=== PATIENT | female | born 1985 ===

== ENCOUNTER 2018-03-03 21:23 | Emergency (ER) | payer BC, MEDICAID ==
[2018-03-03 21:42] VITALS: TEMP 98.5; O2SAT 100
[2018-03-03] MEDS ORDERED: Sodium Chloride 0.9% 1,000 ML IV STA (22:30)
[2018-03-03 23:06] LABS: BASO # 0.1 K/uL (0.0-0.2); BASO % 0.8 % (0.0-2.0); EOS # 0.1 K/uL (0.0-0.7); EOS % 0.9 % (0.0-4.0); HEMOGLOBIN 15.2 g/dL (12.0-16.0); LYMPH # 2.7 K/uL (1.0-4.3); LYMPH % 25.4 % (20.0-40.0); MEAN CELL VOLUME 92.6 fl (81.0-99.0); MEAN CORPUSCULAR HEMOGLOBIN 31.6 pg (27.0-31.0); MEAN CORPUSCULAR HGB CONC 34.1 g/dL (33.0-37.0); MEAN PLATELET VOLUME 9.3 fl (7.2-11.7); MONO % 9.2 % (0.0-10.0); NEUT # 6.7 K/uL (1.8-7.0); NEUT % 63.7 % (50.0-75.0); RBC 4.82 Mil/uL (3.80-5.20); RED CELL DISTRIBUTION WIDTH 13.6 % (11.5-14.5); WHITE BLOOD COUNT 10.6 K/uL (4.8-10.8)
[2018-03-03 23:10] LABS: ALB/GLOB RATIO 1.3 (1.0-2.1); ALBUMIN 4.2 g/dL (3.5-5.0); ALT/SGPT 51 U/L (9-52); AST/SGOT 35 U/L (14-36); BLOOD UREA NITROGEN 5 mg/dl (7-17); CALCIUM 9.1 mg/dL (8.4-10.2); GFR NON-AFRICAN AMERICAN > 60
--- NOTE | 2018-03-03 23:32 | ED PDOC ---
HPI: Abdomen Time Seen by Provider: 03/03/18 21:25 Chief Complaint (Nursing): Abdominal Pain Chief Complaint (Provider): Abdominal Pain History Per: Patient History/Exam Limitations: no limitations Onset/Duration Of Symptoms: Days Current Symptoms Are (Timing): Still Present Associated Symptoms: denies: Fever, Nausea, Vomiting, Urinary Symptoms Additional Complaint(s): Rissa Shah is a 32 year old female with no past medical history who is presenting to the ED with complaints of lower abdominal and pelvic pain associated with vaginal bleeding onset 2 days ago. (bleeding resolved, gone at this time) Of note, patient is currently 8 weeks and (2 miscarriages). Patient denies any fevers, vomiting, or urinary symptoms. She offers no other medical complaints at this time. Patient states she is O+ and reports she stopped bleeding this morning. PMD: Sujit Fowler Past Medical History Reviewed: Historical Data, Nursing Documentation, Vital Signs Vital Signs: Last Vital Signs Temp 98.5 F 03/04/18 01:50 Pulse 87 03/04/18 01:50 Resp 16 03/04/18 01:50 BP 128/70 03/04/18 01:50 Pulse Ox 100 03/04/18 01:50 - Medical History PMH: No Chronic Diseases - Surgical History Surgical History: No Surg Hx - Family History Family History: States: Unknown Family Hx - Social History Current smoker - smoking cessation education provided: No Alcohol: None Drugs: Denies - Home Medications Home Medications: Ambulatory Orders Medication Instructions Recorded Oxycodone HCl/Acetaminophen 1 each PO Q6 PRN #12 tablet 09/19/15 [Percocet 5-325 mg Tablet] - Allergies Allergies/Adverse Reactions: Allergies Allergy/AdvReac Type Severity Reaction Status Date / Time No Known Allergies Allergy Verified 03/03/18 21:38 Review of Systems ROS Statement: Except As Marked, All Systems Reviewed And Found Negative Constitutional: Negative for: Fever Gastrointestinal: Positive for: Abdominal Pain. Negative for: Nausea, Vomiting Genitourinary Female: Positive for: Vaginal Bleeding, Pelvic Pain. Negative for : Dysuria, Frequency, Incontinence, Hematuria Physical Exam - Reviewed Nursing Documentation Reviewed: Yes Vital Signs Reviewed: Yes - Physical Exam Appears: Positive for: Non-toxic, No Acute Distress Head Exam: Positive for: ATRAUMATIC, NORMAL INSPECTION, NORMOCEPHALIC Skin: Positive for: Normal Color, Warm, DRY Eye Exam: Positive for: EOMI, Normal appearance, PERRL ENT: Positive for: Normal ENT Inspection Neck: Positive for: Normal, Painless ROM Cardiovascular/Chest: Positive for: Regular Rate, Rhythm. Negative for: Murmur Respiratory: Positive for: Normal Breath Sounds. Negative for: Respiratory Distress Gastrointestinal/Abdominal: Positive for: Normal Exam, Soft. Negative for: Tenderness Back: Positive for: Normal Inspection. Negative for: L CVA Tenderness, R CVA Tenderness, Vertebral Tenderness Extremity: Positive for: Normal ROM. Negative for: Deformity, Swelling Neurologic/Psych: Positive for: Alert, Oriented. Negative for: Motor/Sensory Deficits - Laboratory Results Result Diagrams: 03/03/18 22:52 03/03/18 22:52 - ECG O2 Sat by Pulse Oximetry: 100 (RA) Pulse Ox Interpretation: Normal Medical Decision Making Medical Decision Making: Time: 22:12 Impression/Differentials: vaginal bleeding in setting of . Rule out threatened vs. ectopic Plan: --Blood Type and Screen --Bets-HCG Quantitative --CMP --CBC --IV Fluids --Transvaginal US Transvaginal US: FINDINGS: Uterus/cervix: There is no intrauterine gestation. There is a 1 x 1.1 cm complex cyst in the uterine cervix, suggesting a hemorrhagic or infected nabothian cyst. The endometrium is 8.5 mm thick. No solid myometrial mass. Right ovary: There is a 1.8 x 1.7 x 2 cm anechoic cyst in the right ovary. Normal blood flow. Left ovary: Unremarkable. No mass. Normal blood flow. Free fluid: No free fluid. IMPRESSION: 1. No evidence of an intrauterine gestation. This could be secondary to an early gestational age or a failed . Ectopic cannot be completely excluded; however, there are no high risk signs of ectopic . Recommend follow up. 2. There is a 1 x 1.1 cm complex cyst in the uterine cervix, suggesting a hemorrhagic or infected nabothian cyst. Recommend follow up. 3. There is a 1.8 x 1.7 x 2 cm anechoic cyst in the right ovary, probably a corpus luteal cyst. --Labs were reviewed with no clinically significant abnormalities. Beta-HCG was negative. so pt either passed or failed preg. Results were discussed with patient who was made aware of failed . Vitals normalized. Upon provider evaluation patient is medically stable, and requires no further treatment in the ED at this time. Patient will be discharged home. Counseling was provided and all questions were answered regarding diagnosis and need for follow up with product manager financial services. There is agreement to discharge plan. Return if symptoms persist or worsen. Scribe Attestation: Documented by Marisela Colon, acting as a scribe for Johnny Esparza MD. Provider Scribe Attestation: All medical record entries made by the Scribe were at my direction and personally dictated by me. I have reviewed the chart and agree that the record accurately reflects my personal performance of the history, physical exam, medical decision making, and the department course for this patient. I have also personally directed, reviewed, and agree with the discharge instructions and disposition. Disposition - Clinical Impression Clinical Impression: Miscarriage - Patient ED Disposition Is Patient to be Admitted: No Counseled Patient/Family Regarding: Studies Performed, Diagnosis, Need For Followup - Disposition Disposition: Routine/Home Disposition Time: 01:40 Condition: IMPROVED Additional Instructions: follow up with your product manager financial services in 1-2 days return to the ED with any worsening or concerning symptoms Instructions: Miscarriage (DC) Forms: [employer] ([employer])
[2018-03-04 02:14] VITALS: BP 128/70; PULSE 87; RESP 16
--- NOTE | 2018-03-04 13:13 | US ---
Date of service: 03/03/2018 HISTORY: Abdominal pain, vaginal bleeding and history of . LMP 01/09/2018. Beta HCG results: Pending. COMPARISON: None available. TECHNIQUE: Transvaginal only. Real -time technique with 2D, duplex and color Doppler FINDINGS: UTERUS: Measures 4.9 x 6.3 x 8.6 cm. Normal in size and appearance. No fibroid or other mass lesion seen. ENDOMETRIUM: Measures 8.6 mm in diameter. No ultrasound findings to suggest gestational sac, fluid, debris, mass or polyp or other pathologic process within the endometrium. CERVIX: Closed cervix 3.8 cm. Incidental finding: Nabothian cysts the largest measures 0.9 x 1.2 cm the slightly smaller complex cyst measures 10 mm. RIGHT OVARY: Measures 2.5 x 3.6 x 3.3 cm. No solid mass. Normal flow. Dominant simple cyst 1.7 x 1.8 x 2 cm. Multiple subcentimeter follicles. LEFT OVARY: Measures 1.6 x 2.2 x 2.5 cm. No solid mass. Normal flow. Multiple subcentimeter follicles. FREE FLUID: No significant free fluid noted. OTHER FINDINGS: None. IMPRESSION: Unremarkable uterus, endometrial echo complex. No visible products of conception within the endometrium. Bilateral simple cysts/ follicles. Concordant results (preliminary interpretation) provided by [facility]. Procedure Completed: 22:59. Preliminary ([facility]) Report: Dictated and Authenticated: 23:58 Final Interpretation:
== END 2018-03-04 02:00 | disposition home or self-care (01) ==
LOC: H.ER 21:23
DX: N83.201 Unspecified ovarian cyst, right side (principal); O03.9 Complete or unspecified spontaneous abortion without complication
CPT/HCPCS: 76830; 80053; 84702; 85025; 86850; 86900; 99283; J7030